=== PATIENT | male | born 1995 | race Hispanic/Latino ===

== ENCOUNTER → 2020-07-02 | Outpatient (CLI) | payer OTHER ==
[~2020-07-02] MED LIST: GABAPENTIN100 MG; ULTRAM50 MG PO
== END ==
LOC: DX 16:44 → EDSTATUS 07-05 06:30
PROVIDERS: ATTEND Physical Medicine & Rehabilitation Pain Medicine
DX: Z01.818 Encounter for other preprocedural examination (principal); U07.1 COVID-19; M54.16 Radiculopathy, lumbar region
CPT/HCPCS: U0002

== ENCOUNTER → 2020-08-02 | Day surgery (SDC) | payer OTHER ==
[~2020-08-02] MED LIST changes: +DEXAMETHASONE SOD PHOS 10 MG/1 ML VIAL ONE; +FENTANYL CITRATE/PF 100MCG/2 ML INJ ONE; +IOPAMIDOL 200 MG/ML 20 ML VIAL IT ONE; +KETAMINE HCL INJ 50 MG/ML 10 ML VIAL ONE; +LIDOCAINE HCL 1% 30ML-PF VIAL ONE; +MIDAZOLAM HCL 2 MG/2 ML VIAL ONE; +PROPOFOL IV EMULSION 10 MG/ML 20 ML VIAL ONE
[2020-08-02 07:15] VITALS: BP 119/85
== END | disposition home or self-care (01) ==
LOC: OR 05:28
PROVIDERS: ATTEND Physical Medicine & Rehabilitation Pain Medicine
DX: M54.16 Radiculopathy, lumbar region (principal); Z86.19 Personal history of other infectious and parasitic diseases
CPT/HCPCS: 77003; J1100; J2001; J2250; J3010; Q9967